=== PATIENT | female | born 1980 | race African-American/Black ===

== ENCOUNTER 2020-05-27 00:54 | Emergency (ER) | payer OTHER, MEDICAID ==
[~2020-05-27] VITALS: Ht 162.6 cm; Wt 61.8 kg
[2020-05-27] MEDS ORDERED: PENICILLIN G BENZ 1200000 UNITS/2 ML SYRG IM ONE (02:00)
[2020-05-27 03:19] VITALS: BP 133/82
== END 2020-05-27 03:42 | disposition home or self-care (01) ==
LOC: ER 00:54
DX: S93.401A Sprain of unspecified ligament of right ankle, initial encounter (principal); A53.9 Syphilis, unspecified; N39.0 Urinary tract infection, site not specified; M54.2 Cervicalgia; Z76.0 Encounter for issue of repeat prescription; X58.XXXA Exposure to other specified factors, initial encounter; Y93.89 Activity, other specified; Y92.89 Other specified places as the place of occurrence of the external cause; Y99.8 Other external cause status
CPT/HCPCS: 96372; 99283; J0561

== ENCOUNTER 2023-02-21 14:25 | Emergency (ER) | payer OTHER ==
[~2023-02-21] VITALS: Ht 162.6 cm; Wt 52.7 kg
[2023-02-21 15:39] LABS: Urine Bacteria FEW /hpf (None Seen); Urine Blood Negative /uL (Negative); Urine WBC 2 /hpf (0 - 5)
[2023-02-21] MEDS ORDERED: cefTRIAXone SOD 1,000 MG VL IM ONE (16:30)
[2023-02-21] MEDS ORDERED: DOXY-286 PO (16:31)
[2023-02-21 16:47] VITALS: BP 129/82
== END 2023-02-21 17:01 | disposition home or self-care (01) ==
LOC: ER 14:25
DX: N39.0 Urinary tract infection, site not specified (principal); Z20.2 Contact with and (suspected) exposure to infections with a predominantly sexual mode of transmission
CPT/HCPCS: 81001; 86592; 86695; 86696; 86703; 87491; 87591; 96372; 99283; J0696

== ENCOUNTER 2024-05-29 18:01 | Emergency (ER) | payer OTHER, MEDICAID ==
[~2024-05-29] VITALS: Ht 160 cm; Wt 57.0 kg
[~2024-05-29 18:01] MED LIST: DOXY-286 PO
[2024-05-29 18:17] VITALS: TEMP 99.4
[2024-05-29 20:08] LABS: Urine Bacteria FEW /hpf (None Seen); Urine Blood TRACE /uL (Negative); Urine Clarity Turbid (Clear); Urine Color Yellow (Yellow); Urine Mucus FEW (None Seen); Urine Protein, UAD 1+ (Negative); Urine Specific Gravity 1.036 (1.001-1.035); Urine Urobilinogen 3 mg/dL (Negative); Urine WBC 331 /hpf (0 - 5)
[2024-05-29] MEDS ORDERED: BACDST PO (21:13)
[2024-05-29 21:25] LABS: Amphetamine Screen, Urine Pos (NEGATIVE); Barbiturate Scree,Urine Neg (NEGATIVE); Benzodiazephine Screen, Urine Neg (NEGATIVE); Cocaine Screen, Urine Neg (NEGATIVE)
[2024-05-29 21:25] LABS: Basophils # (auto) 0.1 10 ^3/uL (0-0.2); Basophils % (auto) 0.8 % (0.0-2.0); Eosinophils # (auto) 0.1 10 ^3/uL (0-0.8); Eosinophils % (auto) 0.8 % (0.0-7.0); Hematocrit 31.1 % (36.0-46.0); Hemoglobin 9.9 g/dL (12.2-16.2); Lymphocytes # (auto) 2.4 10 ^3/uL (0.4-5.4); Lymphocytes % (auto) 27.5 % (10.0-50.0); Mean Corpuscular Hemoglobin 24.3 pg (28.0-32.0); Mean Corpuscular Hgb Conc. 31.9 g/dL (32.0-36.0); Mean Corpuscular Volume 76.2 fL (80.0-100.0); Monocytes # (auto) 0.6 10 ^3/uL (0-1.3); Monocytes % (auto) 7.1 % (0.0-12.0); Neutrophils # (auto) 5.6 10 ^3/uL (1.6-8.6); Neutrophils % (auto) 63.8 % (37.0-80.0); Nucleated Red Blood Cells % 0.1 %; Platelet Count (auto) 296 10^3/uL (140-450); Red Blood Cells 4.08 10^6/uL (4.0-5.20); White Blood Cell 8.7 10^3/uL (4.4-10.8)
[2024-05-29] MEDS: cefTRIAXone SOD 1,000 MG VL IM ONE (21:25)
[2024-05-29 21:26] LABS: Cannabinoid Screen, Urine Neg (NEGATIVE); Opiate Scree,Urine Neg (NEGATIVE); Phencyclidine Screen, Urine Pos (NEGATIVE)
[2024-05-29 21:26] LABS: Red Cell Distribution Width 20.8 % (11.8-14.3)
[2024-05-29 21:29] LABS: Chloride 109 mmol/L (98-107); Potassium 3.2 mmol/L (3.5-5.1); Sodium 138 mmol/L (136-145)
[2024-05-29 21:30] LABS: Anion Gap 7 (5-15); Carbon Dioxide 22 mmol/L (20-30)
[2024-05-29 21:31] LABS: Calcium 9.7 mg/dL (8.7-10.4)
[2024-05-29 21:35] LABS: Glucose 99 mg/dL (74-106)
[2024-05-29 21:36] LABS: BUN/Creatinine Ratio 10.1 (10.0-20.0); Blood Urea Nitrogen 9 mg/dL (9-23)
[2024-05-29] MEDS: POTASSIUM CHL 20 Meq TABLET PO ONE (22:21)
[2024-05-29 22:35] VITALS: BP 105/74; PULSE 104; RESP 19; O2SAT 100
== END 2024-05-29 22:42 | disposition home or self-care (01) ==
LOC: ER 18:01
DX: N39.0 Urinary tract infection, site not specified (principal); F19.10 Other psychoactive substance abuse, uncomplicated; E86.0 Dehydration; F41.9 Anxiety disorder, unspecified; F32.9 Major depressive disorder, single episode, unspecified; F15.90 Other stimulant use, unspecified, uncomplicated; Z00.00 Encounter for general adult medical examination without abnormal findings; Z86.2 Personal history of diseases of the blood and blood-forming organs and certain disorders involving the immune mechanism; Z98.890 Other specified postprocedural states; Z79.899 Other long term (current) drug therapy
CPT/HCPCS: 36415; 80048; 80307; 81001; 85025; 96372; 99283; J0696

== ENCOUNTER 2024-05-31 10:46 | Emergency (ER) | payer OTHER, MEDICAID ==
[~2024-05-31] VITALS: Ht 165.1 cm; Wt 54.5 kg
[~2024-05-31 10:46] MED LIST changes: +BACDST PO
[2024-05-31 11:16] VITALS: BP 122/78; PULSE 89; RESP 20; O2SAT 98
[2024-05-31 12:36] LABS: Basophils # (auto) 0.1 10 ^3/uL (0-0.2); Basophils % (auto) 0.7 % (0.0-2.0); Eosinophils # (auto) 0.1 10 ^3/uL (0-0.8); Eosinophils % (auto) 0.9 % (0.0-7.0); Hematocrit 33.4 % (36.0-46.0); Hemoglobin 10.5 g/dL (12.2-16.2); Lymphocytes # (auto) 1.6 10 ^3/uL (0.4-5.4); Lymphocytes % (auto) 23.5 % (10.0-50.0); Mean Corpuscular Hemoglobin 24.1 pg (28.0-32.0); Mean Corpuscular Hgb Conc. 31.3 g/dL (32.0-36.0); Mean Corpuscular Volume 77.1 fL (80.0-100.0); Monocytes # (auto) 0.6 10 ^3/uL (0-1.3); Monocytes % (auto) 8.7 % (0.0-12.0); Neutrophils # (auto) 4.6 10 ^3/uL (1.6-8.6); Neutrophils % (auto) 66.2 % (37.0-80.0); Nucleated Red Blood Cells % 0.1 %; Platelet Count (auto) 324 10^3/uL (140-450); Red Blood Cells 4.33 10^6/uL (4.0-5.20)
[2024-05-31 12:39] LABS: Red Cell Distribution Width 21.1 % (11.8-14.3)
[2024-05-31 12:48] LABS: Chloride 109 mmol/L (98-107); Sodium 139 mmol/L (136-145)
[2024-05-31 12:49] LABS: Anion Gap 6 (5-15); Calcium 9.6 mg/dL (8.7-10.4); Carbon Dioxide 24 mmol/L (20-30)
[2024-05-31 12:54] LABS: BUN/Creatinine Ratio 7.1 (10.0-20.0); Blood Urea Nitrogen 6 mg/dL (9-23); Glucose 106 mg/dL (74-106)
[2024-05-31 12:55] LABS: Blood Alcohol < 3.0 mg/dL (<10)
== END 2024-05-31 16:59 | disposition home or self-care (01) ==
LOC: EDBD 10:46 → ER 10:46
DX: F15.10 Other stimulant abuse, uncomplicated (principal); F19.239 Other psychoactive substance dependence with withdrawal, unspecified; F41.9 Anxiety disorder, unspecified; F32.9 Major depressive disorder, single episode, unspecified; F17.210 Nicotine dependence, cigarettes, uncomplicated; F12.10 Cannabis abuse, uncomplicated; F14.10 Cocaine abuse, uncomplicated
CPT/HCPCS: 36415; 80048; 80320; 85025